=== PATIENT | female | born 2000 | race Caucasian/White ===

== ENCOUNTER 2021-06-23 11:08 | Inpatient (IN) ==
[2021-06-23] MEDS ORDERED: DIPH/TET/ACEL PERT BOOSTER VACCINE 0.5 ML VIAL IM ONE (11:26)
[2021-06-23] MEDS ORDERED: LACTATED RINGERS 1,000 ML IV STA (11:26)
[2021-06-23] MEDS ORDERED: ceFAZolin 2,000 MG in SODIUM CHLORIDE 0.9% 100 ML IV STA (11:26)
[2021-06-23] MEDS ORDERED: HYDROmorphone 2 MG/1 ML VIAL IV STA ×2 (11:26→12:36)
[2021-06-23 11:32] LABS: Basophils % 0.4 % (0.0-0.8); Eosinophils # 0.2 10*3/uL (0.0-0.87); Eosinophils % 2.2 % (0.00-10.9); Hematocrit 37.9 VOL% (35.7-47.0); Hemoglobin 12.2 GM/DL (12.0-16.0); Immature Granulocytes % 0.4 %; Immature Granulocytes Absolute 0.04 #; Lymphocytes # 3.3 10*3/uL (1.4-4.0); Mean Corpuscular HGB Conc 32.2 GM/DL (32-36); Monocytes % 5.6 % (1.7-12.7); Neutrophils % 57.4 % (38.7-73.9); Platelet Count 313 T/CUMM (130-400); Red Blood Count 3.83 MC/CUMM (3.8-5.5); Red Cell Distribution Width 13.7 % (9.3-17.3); White Blood Count 9.6 T/CUMM (4-12)
[2021-06-23 11:43] LABS: PT Patient Result 11.4 SECS (10.5-12.0); Partial Thromboplastin Time 25.9 SECS (23.8-32.1)
[2021-06-23 12:02] LABS: Alanine Aminotransferase 31 U/L (13-56); Albumin 3.6 G/DL (3.4-5.0); Alkaline Phosphatase 85 U/L (45-117); Aspartate Amino Transferase 28 U/L (0-37); Blood Urea Nitrogen 10 MG/DL (7-18); Calcium 8.7 MG/DL (8.5-10.1); Carbon Dioxide 23 MMOL/L (21-32); Estimated Glom Filtration Rate 129 ML/MIN; Glucose 138 MG/DL (74-106); Osmolality,Calculated 273.8 MOS/KG (273-304); Potassium 4.1 MMOL/L (3.5-5.1); Sodium 137 MMOL/L (136-145); Total Protein 7.7 G/DL (6.4-8.2)
[2021-06-23] MEDS ORDERED: propofoL 200 MG/20 ML VIAL IV ONE ×2 (12:22→13:47)
[2021-06-23] MEDS ORDERED: propofoL 200 MG/20 ML VIAL IV STA (12:36)
[2021-06-23] MEDS ORDERED: diphenhydrAMINE 50 MG/1 ML VIAL IV PRN (12:54)
[2021-06-23] MEDS ORDERED: PROMETHAZINE INJ 25 MG in SODIUM CHLORIDE 0.9% 50 ML IV PRN (12:54)
[2021-06-23] MEDS ORDERED: ONDANSETRON 4 MG/2 ML VIAL IV PRN ×2 (12:54→14:18)
[2021-06-23] MEDS ORDERED: MEPERIDINE 25 MG/1 ML VIAL IV PRN (12:54)
[2021-06-23 13:47] LABS: Amorphous Crystals,Urine Occasional /HPF (Few); Bilirubin,Urine Negative (Negative); Blood, Urine Negative (Negative); Glucose,Urine (UA) Negative (Negative); Ketones,Urine Negative (Negative); Mucus,Urine Occasional /LPF (Occasional); Nitrite,Urine Negative (Negative); Protein,Urine Negative; Squamous Epithelial Cell,Urine Few /HPF (0-10); Urine Appearance CLOUDY (Clear); Urine Color Yellow (Yellow); Urine Specific Gravity 1.019 (1.001-1.035); Urine Urobilinogen < 2.0 EU/DL (<2.0)
[2021-06-23] MEDS ORDERED: SEVOFLURANE 1 UNIT/15 MINUTE INH ONE ×6 (13:47→16:22)
[2021-06-23] MEDS ORDERED: DEXAMETHASONE 4 MG/1 ML VIAL ONE (13:47)
[2021-06-23] MEDS ORDERED: LIDOCAINE 2% 5 ML VIAL ONE (13:47)
[2021-06-23] MEDS ORDERED: ONDANSETRON 4 MG/2 ML VIAL ONE (13:47)
[2021-06-23] MEDS ORDERED: fentaNYL 100 MCG/2 ML VIAL ONE (13:47)
[2021-06-23 13:54] LABS: Barbiturates Screen,Urine Negative (Negative); Benzodiazepines Screen,Urine Negative (Negative); Cannabinoid Screen,Urine Positive (Negative); Opiate Screen,Urine Positive (Negative); Phencyclidine Screen,Urine Negative (Negative)
[2021-06-23] MEDS ORDERED: KETOROLAC 30 MG/1 ML VIAL ONE (14:22)
[2021-06-23] MEDS ORDERED: ACETAMINOPHEN INJ 1,000 MG/100 ML VIAL IV ONE (14:22)
[2021-06-23] MEDS: LACTATED RINGERS 1,000 ML IV SCH (14:26)
[2021-06-23] MEDS ORDERED: INFLUENZA VIRUS VACCINE 0.5 ML SYRINGE IM ONE (14:39)
[2021-06-23] MEDS ORDERED: ePHEDrine 50 MG/ML VIAL ONE (14:46)
[2021-06-23] MEDS ORDERED: PHENYLEPHRINE 1 MG/10 ML SYRINGE IV ONE (14:57)
[2021-06-23] MEDS ORDERED: LACTATED RINGERS 1,000 ML IV ONE (15:12)
[2021-06-23] MEDS ORDERED: MAGNESIUM HYDROXIDE SUSP 30 ML UDCUP PO PRN (16:07)
[2021-06-23] MEDS ORDERED: PROMETHAZINE 25 MG/1 ML VIAL ONE (16:17)
[2021-06-23] MEDS: HYDROmorphone 2 MG/1 ML VIAL IV PRN ×5 (16:20→21:10)
[2021-06-23] MEDS ORDERED: METOCLOPRAMIDE 10 MG/2 ML VIAL ONE (16:38)
[2021-06-23] MEDS ORDERED: SCOPOLAMINE 1.5 MG PATCH TRANSDERM ONE ×2 (16:39→16:45)
[2021-06-23] MEDS ORDERED: METOCLOPRAMIDE 10 MG/2 ML VIAL IV ONE (16:45)
[2021-06-23] MEDS ORDERED: ceFAZolin 1,000 MG VIAL ONE (16:56)
[2021-06-24] MEDS: LACTATED RINGERS 1,000 ML IV SCH ×4 (00:01→23:33)
[2021-06-24 06:08] LABS: Basophils % 0.1 % (0.0-0.8); Eosinophils % 0.1 % (0.00-10.9); Hemoglobin 10.5 GM/DL (12.0-16.0); Immature Granulocytes % 0.4 %; Immature Granulocytes Absolute 0.05 #; Lymphocytes # 2.3 10*3/uL (1.4-4.0); Lymphocytes % 16.2 % (21.3-54.2); Mean Corpuscular HGB Conc 32.8 GM/DL (32-36); Mean Corpuscular Volume 98.2 FL (87-102); Mean Platelet Volume 10.3 FL (9.6-12.0); Neutrophils % 76.2 % (38.7-73.9); Red Blood Count 3.26 MC/CUMM (3.8-5.5); Red Cell Distribution Width 13.6 % (9.3-17.3)
[2021-06-24 06:20] LABS: Calcium 8.1 MG/DL (8.5-10.1); Osmolality,Calculated 272.7 MOS/KG (273-304); Potassium 3.6 MMOL/L (3.5-5.1)
[2021-06-24 06:30] LABS: Platelet Count 241 T/CUMM (130-400); White Blood Count 13.9 T/CUMM (4-12)
[2021-06-24] MEDS: HYDROmorphone 2 MG/1 ML VIAL IV PRN ×4 (07:28→21:29)
[2021-06-24] MEDS: PANTOPRAZOLE 40 MG TABLET PO SCH (08:05)
[2021-06-25] MEDS: HYDROmorphone 2 MG/1 ML VIAL IV PRN ×5 (01:41→21:59)
[2021-06-25] MEDS: LACTATED RINGERS 1,000 ML IV SCH ×3 (05:43→17:58)
[2021-06-25 05:53] LABS: Basophils % 0.3 % (0.0-0.8); Eosinophils # 0.1 10*3/uL (0.0-0.87); Eosinophils % 0.9 % (0.00-10.9); Hematocrit 30.2 VOL% (35.7-47.0); Hemoglobin 9.9 GM/DL (12.0-16.0); Immature Granulocytes % 0.9 %; Immature Granulocytes Absolute 0.11 #; Lymphocytes # 3.1 10*3/uL (1.4-4.0); Lymphocytes % 26.4 % (21.3-54.2); Mean Corpuscular HGB Conc 32.8 GM/DL (32-36); Mean Corpuscular Volume 98.4 FL (87-102); Mean Platelet Volume 10.1 FL (9.6-12.0); Monocytes % 8.8 % (1.7-12.7); Neutrophils % 62.7 % (38.7-73.9); Platelet Count 213 T/CUMM (130-400); Red Blood Count 3.07 MC/CUMM (3.8-5.5); Red Cell Distribution Width 13.8 % (9.3-17.3); White Blood Count 11.6 T/CUMM (4-12)
[2021-06-25] MEDS: PANTOPRAZOLE 40 MG TABLET PO SCH (09:44)
[2021-06-25] MEDS ORDERED: fentaNYL 100 MCG/2 ML VIAL ONE ×2 (10:38→11:40)
[2021-06-25] MEDS ORDERED: propofoL 200 MG/20 ML VIAL IV ONE (10:38)
[2021-06-25] MEDS ORDERED: SEVOFLURANE 1 UNIT/15 MINUTE INH ONE ×4 (10:38→11:28)
[2021-06-25] MEDS ORDERED: LIDOCAINE 2% 5 ML VIAL ONE (10:38)
[2021-06-25] MEDS ORDERED: SCOPOLAMINE 1.5 MG PATCH TRANSDERM ONE (11:11)
[2021-06-25] MEDS ORDERED: PROMETHAZINE 25 MG/1 ML VIAL ONE (11:25)
[2021-06-25] MEDS ORDERED: LACTATED RINGERS 1,000 ML IV SCH (11:30)
[2021-06-25] MEDS ORDERED: HYDROmorphone 2 MG/1 ML VIAL IV PRN (13:13)
[2021-06-25] MEDS ORDERED: ONDANSETRON 4 MG/2 ML VIAL IV PRN (13:13)
[2021-06-26] MEDS: HYDROmorphone 2 MG/1 ML VIAL IV PRN ×2 (01:28→09:23)
[2021-06-26] MEDS: LACTATED RINGERS 1,000 ML IV SCH (02:35)
[2021-06-26 07:42] VITALS: BP 99/62
[2021-06-26] MEDS: PANTOPRAZOLE 40 MG TABLET PO SCH (09:23)
== END 2021-06-26 12:26 | disposition home or self-care (01) | DRG 818 ==
LOC: N.ED 11:08 → N.EDINP 12:50 → N.3E 14:00
PROVIDERS: ADMIT Surgery; ATTEND Surgery